=== PATIENT | female | born 1995 | race American Indian/Alaskan Native ===

== ENCOUNTER 2017-06-17 21:35 | Emergency (ER) | payer OTHER ==
[2017-06-17 23:21] LABS: HCG Qualitative,Urine Negative (Negative)
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
[2017-06-18 03:58] VITALS: BP 118/79
[2017-06-18] MEDS ORDERED: BOOSTRIX IM ONE (05:05)
[2017-06-18] MEDS ORDERED: XYLOCAINE 2%/ EPI 1:200,000 INFILTRATI ONE (05:07)
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
== END 2017-06-18 06:50 | disposition home or self-care (01) ==
LOC: ED 21:35
DX: S81.811A Laceration without foreign body, right lower leg, initial encounter (principal); X58.XXXA Exposure to other specified factors, initial encounter; Y93.01 Activity, walking, marching and hiking; Y92.039 Unspecified place in apartment as the place of occurrence of the external cause; Y99.8 Other external cause status
CPT/HCPCS: 81025; 90471; 90715; 99283

== ENCOUNTER 2018-09-17 19:03 | Emergency (ER) | payer MEDICAID, OTHER ==
[2018-09-17 19:19] VITALS: BP 120/70
[2018-09-17] MEDS ORDERED: ZOFRAN ODT PO ONE (19:36)
[2018-09-17] MEDS ORDERED: TYLENOL PO ONE (19:36)
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
[2018-09-17 21:16] LABS: Bacteria,Urine 1+ /HPF (Negative); Bilirubin,Urine NEG (Negative); Blood,Urine SM (Negative); Color,Urine Yellow (Yellow); Mucus,Urine FEW /HPF; Protein,Urine <15 mg/dL mg/dL (Negative)
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
[2018-09-17] MEDS ORDERED: TYLENOL ONE (21:43)
[2018-09-17] MEDS ORDERED: ZOFRAN ODT ONE (21:43)
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
== END 2018-09-17 22:07 | disposition home or self-care (01) ==
LOC: ED 19:03
DX: O9A.212 Injury, poisoning and certain other consequences of external causes complicating pregnancy, second trimester (principal); S39.91XA Unspecified injury of abdomen, initial encounter; Z3A.16 16 weeks gestation of pregnancy; W50.0XXA Accidental hit or strike by another person, initial encounter; Y93.89 Activity, other specified; Y92.69 Other specified industrial and construction area as the place of occurrence of the external cause; Y99.8 Other external cause status
CPT/HCPCS: 76805; 81001; Q0162

== ENCOUNTER 2018-11-28 19:26 | Emergency (ER) | payer MEDICAID ==
[2018-11-28 19:57] VITALS: BP 117/69
--- NOTE | 2018-11-28 19:57 | Emergency Department Report ---
Blank Doc - Documentation Documentation: This is a 23-year-old female that presents chest tightness and SOB with cough. Stated chest pain with cough. Stated is about 26 weeks . Denies any abdominal pain or vaginal bleeding. This initial assessment/diagnostic orders/clinical plan/treatment(s) is/are subject to change based on patient's health status, clinical progression and re- assessment by fellow clinical providers in the ED. Further treatment and workup at subsequent clinical providers discretion. Patient/guardians urged not to elope from the ED as their condition may be serious if not clinically assessed and managed. Initial orders include: 1- Patient sent to [facility] for further evaluation and treatment 2- labs 3- EKG
[2018-11-28 20:42] LABS: BUN/Creatinine Ratio 10; Basophils % (Auto) 0.2 % (0.0-1.8); Blood Urea Nitrogen 5 mg/dL (7-17); Calcium 8.5 mg/dL (8.4-10.2); Eosinophils # (Auto) 0.2 K/mm3 (0.0-0.4); Eosinophils % (Auto) 2.1 % (0.0-4.3); Hematocrit 34.2 % (30.3-42.9); Hemoglobin 11.8 gm/dl (10.1-14.3); Hemolysis Index 1; Lymphocytes # (Auto) 1.5 K/mm3 (1.2-5.4); Lymphocytes % (Auto) 13.4 % (13.4-35.0); Mean Corpuscular HGB Conc 34 % (30-34); Mean Corpuscular Volume 97 fl (79-97); Monocytes # (Auto) 1.1 K/mm3 (0.0-0.8); Monocytes % (Auto) 9.2 % (0.0-7.3); Platelet Count 203 K/mm3 (140-440); Red Blood Count 3.53 M/mm3 (3.65-5.03); Red Cell Distribution Width 12.6 % (13.2-15.2)
[2018-11-28 20:50] LABS: INR 0.98 (0.87-1.13)
[2018-11-28 20:51] LABS: Partial Thromboplastin Time 26.8 Sec. (24.2-36.6)
[2018-11-28] MEDS ORDERED: TYLENOL PO ONE (23:53)
--- NOTE | 2018-11-29 00:16 | Emergency Department Report ---
- General Chief Complaint: Upper Respiratory Infection Stated Complaint: chest pain sob 26 weeks Time Seen by Provider: 11/28/18 19:53 Source: patient Mode of arrival: Ambulatory Limitations: No Limitations - History of Present Illness Initial Comments: 23-year-old female currently 26 weeks presents to the Hospital complaining of nasal congestion, cough, and chest pain since yesterday. Cough is primarily dry with occasional mucus production. Patient denies fever, leg edema, or calf tenderness. Patient complains of sharp anterior upper mid chest pain with coughing and while trying to sleep. Pain is rated 8/10 in intensity. Also worse with palpation. Patient feels short of breath when lying supine. Denies wheezing or history of reactive airway disease. Patient has received care including ultrasound to confirm IUP. [facility] - Related Data Previous Rx's Medication Instructions Recorded Last Taken Type Sulfamethoxazole/Trimethoprim 1 each PO BID #14 tablet 06/18/17 Unknown Rx [Bactrim DS TAB] traMADol [Ultram] 50 mg PO Q6HR PRN #12 tablet 06/18/17 Unknown Rx Acetaminophen [Acetaminophen TAB] 1,000 mg PO Q6HR PRN #20 tablet 11/29/18 Unknown Rx Azithromycin [Zithromax Z-LYDIA] 1 dose PO DAILY 5 Days tab 11/29/18 Unknown Rx guaiFENesin/DEXTROMETHORPHAN 20 ml PO Q4HR PRN #20 dose 11/29/18 Unknown Rx [Robitussin Cough-Chest Dm Liq] Allergies Allergy/AdvReac Type Severity Reaction Status Date / Time No Known Allergies Allergy Verified 11/28/18 19:31 ED Review of Systems ROS: Stated complaint: chest pain sob 26 weeks Other details as noted in HPI Comment: All other systems reviewed and negative ED Past Medical Hx - Social History Smoking Status: Never Smoker Substance Use Type: None - Medications Home Medications: Home Medications Medication Instructions Recorded Confirmed Last Taken Type Sulfamethoxazole/Trimethoprim 1 each PO BID #14 tablet 06/18/17 Unknown Rx [Bactrim DS TAB] traMADol [Ultram] 50 mg PO Q6HR PRN #12 tablet 06/18/17 Unknown Rx Acetaminophen [Acetaminophen TAB] 1,000 mg PO Q6HR PRN #20 tablet 11/29/18 Unknown Rx Azithromycin [Zithromax Z-LYDIA] 1 dose PO DAILY 5 Days tab 11/29/18 Unknown Rx guaiFENesin/DEXTROMETHORPHAN 20 ml PO Q4HR PRN #20 dose 11/29/18 Unknown Rx [Robitussin Cough-Chest Dm Liq] ED Physical Exam - General Limitations: No Limitations - Other Other exam information: General: No limitations, patient is alert in no acute distress Head exam: Atraumatic, normocephalic Eyes exam: Normal appearance, pupils equal reactive to light, extraocular movements intact ENT: Moist mucous membrane Neck exam: Normal inspection, full range of motion, no meningismus nontender Respiratory exam: Clear to auscultation bilateral, no wheezes, rales, crackles or frequent dry cough Cardiovascular: Normal rate and rhythm, normal heart sounds. Reproducible upper sternal and anterior chest wall tenderness on palpation Abdomen: Soft, nondistended, and nontender, with normal bowel sounds, no rebound, or guarding Extremity: Full range of motion normal inspection no deformity, no calf tenderness or leg edema Back: Normal Inspection, full range of motion, no tenderness Neurologic: Alert, oriented x3, cranial nerves intact, no motor or sensory deficit Psychiatric: normal affect, normal mood Skin: Warm, dry, intact ED Course Vital Signs 11/28/18 19:55 Temperature 97.7 F Pulse Rate 91 H Respiratory 16 Rate Blood Pressure 117/69 O2 Sat by Pulse 99 Oximetry ED Medical Decision Making - Lab Data Result diagrams: 11/28/18 20:06 11/28/18 20:06 Lab Results 11/28/18 11/28/18 11/28/18 Range/Units 20:06 20:06 20:06 WBC 11.6 H (4.5-11.0) K/mm3 RBC 3.53 L (3.65-5.03) M/mm3 Hgb 11.8 (10.1-14.3) gm/dl Hct 34.2 (30.3-42.9) % MCV 97 (79-97) fl MCH 33 H (28-32) pg MCHC 34 (30-34) % RDW 12.6 L (13.2-15.2) % Plt Count 203 (140-440) K/mm3 Lymph % (Auto) 13.4 (13.4-35.0) % Nash % (Auto) 9.2 H (0.0-7.3) % Eos % (Auto) 2.1 (0.0-4.3) % Baso % (Auto) 0.2 (0.0-1.8) % Lymph # 1.5 (1.2-5.4) K/mm3 Nash # 1.1 H (0.0-0.8) K/mm3 Eos # 0.2 (0.0-0.4) K/mm3 Baso # 0.0 (0.0-0.1) K/mm3 Seg Neutrophils % 75.1 H (40.0-70.0) % Seg Neutrophils # 8.7 H (1.8-7.7) K/mm3 PT 13.6 (12.2-14.9) Sec. INR 0.98 (0.87-1.13) APTT 26.8 (24.2-36.6) Sec. Sodium 135 L (137-145) mmol/L Potassium 3.6 (3.6-5.0) mmol/L Chloride 98.7 (98-107) mmol/L Carbon Dioxide 23 (22-30) mmol/L Anion Gap 17 mmol/L BUN 5 L (7-17) mg/dL Creatinine 0.5 L (0.7-1.2) mg/dL Estimated GFR > 60 ml/min BUN/Creatinine Ratio 10 % Glucose 94 (65-100) mg/dL Calcium 8.5 (8.4-10.2) mg/dL Troponin T < 0.010 (0.00-0.029) ng/mL 11/28/18 Range/Units 23:01 WBC (4.5-11.0) K/mm3 RBC (3.65-5.03) M/mm3 Hgb (10.1-14.3) gm/dl Hct (30.3-42.9) % MCV (79-97) fl MCH (28-32) pg MCHC (30-34) % RDW (13.2-15.2) % Plt Count (140-440) K/mm3 Lymph % (Auto) (13.4-35.0) % Nash % (Auto) (0.0-7.3) % Eos % (Auto) (0.0-4.3) % Baso % (Auto) (0.0-1.8) % Lymph # (1.2-5.4) K/mm3 Nash # (0.0-0.8) K/mm3 Eos # (0.0-0.4) K/mm3 Baso # (0.0-0.1) K/mm3 Seg Neutrophils % (40.0-70.0) % Seg Neutrophils # (1.8-7.7) K/mm3 PT (12.2-14.9) Sec. INR (0.87-1.13) APTT (24.2-36.6) Sec. Sodium (137-145) mmol/L Potassium (3.6-5.0) mmol/L Chloride (98-107) mmol/L Carbon Dioxide (22-30) mmol/L Anion Gap mmol/L BUN (7-17) mg/dL Creatinine (0.7-1.2) mg/dL Estimated GFR ml/min BUN/Creatinine Ratio % Glucose (65-100) mg/dL Calcium (8.4-10.2) mg/dL Troponin T < 0.010 (0.00-0.029) ng/mL - Medical Decision Making Normal vital signs without hypoxia. Breath sounds clear to auscultation. Patient has reproducible anterior chest wall pain secondary to coughing since yesterday. Patient treated in the ED with Tylenol and Robitussin. Chest x-ray offered but declined. Patient be appeared be treated with azithromycin and encouraged to return for possible imaging if symptoms worsen. Follow-up advised - Differential Diagnosis pneumonia, bronchitis, costochondritis, CHF Critical Care Time: No Critical care attestation.: If time is entered above; I have spent that time in minutes in the direct care of this critically ill patient, excluding procedure time. ED Disposition Clinical Impression: Acute bronchitis, Costochondritis, acute, Disposition: DC-01 TO HOME OR SELFCARE Is pt being admited?: No Does the pt Need Aspirin: No Condition: Stable Instructions: Acute Bronchitis (ED), Costochondritis (ED) Additional Instructions: Take the medication as prescribed. Follow up with your doctor or the clinic/doctor provided. Return if symptoms worsen as indicated by your discharge instructions Prescriptions: Acetaminophen [Acetaminophen TAB] 1,000 mg PO Q6HR PRN #20 tablet PRN Reason: Pain , Severe (7-10) guaiFENesin/DEXTROMETHORPHAN [Robitussin Cough-Chest Dm Liq] 20 ml PO Q4HR PRN #20 dose PRN Reason: Cough Azithromycin [Zithromax Z-LYDIA] 1 dose PO DAILY 5 Days tab Referrals: [facility] [Provider Group] - 3-5 Days Time of Disposition: 00:19
== END 2018-11-29 00:25 | disposition home or self-care (01) ==
LOC: ED 19:26
DX: O99.512 Diseases of the respiratory system complicating pregnancy, second trimester (principal); J20.9 Acute bronchitis, unspecified; M94.0 Chondrocostal junction syndrome [Tietze]; Z79.899 Other long term (current) drug therapy; Z3A.26 26 weeks gestation of pregnancy
CPT/HCPCS: 36415; 80048; 84484; 85025; 85610; 85730; 93005; 93010; 99284